=== PATIENT | male | born 1980 | race Caucasian/White ===

== ENCOUNTER 2017-08-18 08:38 | Inpatient (IN) | payer SELFPAY ==
[~2017-08-18] VITALS: Ht 190.5 cm; Wt 85.7 kg
[2017-08-18] MEDS ORDERED: DIAZEPAM 5MG TAB PO STA (08:56)
--- NOTE | 2017-08-18 09:35 | DIAGNOSTIC IMAGING REPORT ---
CT HEAD WITHOUT CONTRAST (CT) CLINICAL HISTORY: Seizure COMPARISON STUDY: No previous studies for comparison. TECHNIQUE: Axial CT of the brain is performed from the vertex to the skull base. IV contrast was not administered for this examination. A dose lowering technique was utilized adhering to the principles of ALARA. CT DOSE: 679.75 mGycm FINDINGS: No intra or extra-axial mass lesions are visualized. There is no CT evidence of acute cortical infarction. There is no evidence of midline shift. There is no acute hemorrhage. No calvarial fractures are visualized. There is no evidence of pathologic ventricular dilatation. There is no evidence of acute sinusitis IMPRESSION: Normal noncontrast head CT. Electronically signed by: Wyatt Walton M.D. 08/18/2017 9:34 AM Dictated Date/Time: 08/18/2017 9:31 AM
[2017-08-18 10:27] LABS: INR 1.1 (0.9-1.1); PROTHROMBIN TIME (PATIENT) 11.4 SECONDS (9.0-12.0)
[2017-08-18 10:35] LABS: BUN/CREATININE RATIO 9.4 (10-20); CALCIUM 9.9 mg/dl (8.5-10.1); CREATININE 1.01 mg/dl (0.60-1.40); MAGNESIUM 1.4 mg/dl (1.8-2.4); POTASSIUM 2.9 mmol/L (3.5-5.1)
[2017-08-18 10:46] LABS: CKMB/CK RATIO 0.5 (0-3.0); THYROID STIMULATING HORMONE 1.81 uIu/ml (0.300-4.500)
[2017-08-18 11:14] LABS: LYME DISEASE AB IGG NEG (NEG); LYME DISEASE AB IGM NEG (NEG)
[2017-08-18 11:17] LABS: HEMATOCRIT 40.5 % (42-52); MEAN CELL VOLUME 95.7 fL (80-100); MEAN CORPUSCULAR HEMOGLOBIN 35.7 pg (25-34); MEAN CORPUSCULAR HGB CONC 37.3 g/dl (32-36); PLATELET COUNT 79 K/uL (130-400); RED BLOOD COUNT 4.23 M/uL (4.7-6.1); WHITE BLOOD COUNT 6.57 K/uL (4.8-10.8)
[2017-08-18 11:18] LABS: BASO % 0.3 %; BASO ABS # 0.02 K/uL (0-0.2); COMPLETE YES; EOS % 0.2 %; IG% 0.6 %; LYMPH % 7.5 %; LYMPH ABS # 0.49 K/uL (1.2-3.4); MONO % 7.2 %; NEUT % 84.2 %; PLT ESTIMATE DECREASED; TOXIC GRANULATION 1+
[2017-08-18] MEDS ORDERED: LORAZEPAM 2 MG/ML 1 ML VIAL IV STA (11:31)
[2017-08-18] MEDS ORDERED: POTASSIUM CHLORIDE 20 MEQ TABCR PO STA (12:00)
[2017-08-18] MEDS ORDERED: ONDANSETRON INJ 2 MG/ML 2 ML VIAL IV PRN (13:30)
[2017-08-18] MEDS ORDERED: ACETAMINOPHEN 325 MG TAB PO PRN (13:30)
[2017-08-18] MEDS ORDERED: MAGNESIUM HYDROXIDE SUSP 30 ML UDC PO PRN (13:30)
--- NOTE | 2017-08-18 13:46 | History and Physical ---
History & Physical Date & Time of Service: Aug 18, 2017 at 13:27 Chief Complaint: Seizure Last Night Primary Care Physician: Rafat Spaulding M.D. History of Present Illness Source: patient, family 37 y/o M who was brought to the hospital today by his significant other over concern regarding seizures. Pt states he started drinking at age 18 in general , but he did not begin "heavy" drinking until the last 2 years or so. He was drinking around a fifth of vodka per day. He recently decided that he wanted to quit drinking and was undergoing a self taper with the help of his significant other. About 2 weeks ago while they were at their home in [place] , pt fell forward and was seen in the ED with neg CT/MRI. He was down to about 1/2 glass of vodka a day at that point. His last drink was on Thursday afternoon. He had about a glass of vodka. He then ran out of vodka and decided that he did not want to purchase more in an effort to fully stop drinking. He had been doing well with this until last night when he had 2 seizures as described by his significant other. The first was in the early afternoon, the second was the late evening. Pt has no memory of this. SO states that there was blood on the bedsheets and that pt bit his tongue. He was groggy between and after these events. At present, he feels shaky but better. He has been having decreased PO intake due to n/v. He has also been having diarrhea. Pt denies fever, SOB, chest pain , abd pain, LE pain or swelling. Pt has been having numbness/tingling to b/l UE and LE. This used to be to his knees, but is now just from ankles down. It only affects his UE in his hands. He states he feels unsteady on his feet. His SO has been undergoing a work-up for this. She does not currently use alcohol, but has in the past. She started a neuro work-up and is here to be seen for more advanced neuro testing. Apparently the water in their area of [place] "makes [place], [place] look like nothing". The water is brown regarded to be the worst in the country. She has undergone heavy metal testing that was neg. It was also "ruled out" that this was related to her hx of alcohol use. Pt is interested in rehab when he is able. Past Medical/Surgical History Denies known medical hx, but has not seen a PCP for many years Social History Smoking Status: Current Every Day Smoker Alcohol Use: as above, last drink was afternoon of 08/16 Drug Use: none Multi-Drug Resistant Organisms History of MDRO: No Allergies Coded Allergies: No Known Allergies (Unverified , 08/18/17) Home Medications No Active Prescriptions or Reported Meds Review of Systems Pertinent positives and negatives reviewed in HPI--all others negative Physical Exam Vital Signs Date Time Temp Pulse Resp B/P (MAP) Pulse Ox O2 Delivery O2 Flow Rate FiO2 08/18/17 12:30 111 18 128/82 97 Room Air 08/18/17 11:05 97 20 128/82 97 Room Air 08/18/17 10:21 118 18 128/82 100 Room Air 08/18/17 08:51 112 08/18/17 08:40 37.1 127 18 126/95 96 Room Air General Appearance: WD/WN, no apparent distress Head: normocephalic, atraumatic Eyes: EOMI, + pertinent finding (red rimmed) ENT: hearing grossly normal Neck: supple Respiratory/Chest: normal breath sounds, no respiratory distress Cardiovascular: regular rate, rhythm, no edema Abdomen/GI: non tender, soft Extremities/Musculoskelatal: no calf tenderness, no pedal edema Neurologic/Psych: alert, normal mood/affect, oriented x 3 Skin: normal color, warm/dry Diagnostics Laboratory Results Results Past 24 Hours Test 08/18/17 09:56 08/18/17 13:22 Range/Units White Blood Count 6.57 4.8-10.8 K/uL Red Blood Count 4.23 4.7-6.1 M/uL Hemoglobin 15.1 14.0-18.0 g/dL Hematocrit 40.5 42-52 % Mean Corpuscular Volume 95.7 80-100 fL Mean Corpuscular Hemoglobin 35.7 25-34 pg Mean Corpuscular Hemoglobin Concent 37.3 32-36 g/dl Platelet Count 79 130-400 K/uL Neutrophils (%) (Auto) 84.2 % Lymphocytes (%) (Auto) 7.5 % Monocytes (%) (Auto) 7.2 % Eosinophils (%) (Auto) 0.2 % Basophils (%) (Auto) 0.3 % Neutrophils # (Auto) 5.54 1.4-6.5 K/uL Lymphocytes # (Auto) 0.49 1.2-3.4 K/uL Monocytes # (Auto) 0.47 0.11-0.59 K/uL Eosinophils # (Auto) 0.01 0-0.5 K/uL Basophils # (Auto) 0.02 0-0.2 K/uL Immature Granulocyte % (Auto) 0.6 % Immature Granulocyte # (Auto) 0.04 0.00-0.02 K/uL Toxic Granulation 1+ Platelet Estimate DECREASED Prothrombin Time 11.4 9.0-12.0 SECONDS Prothromb Time International Ratio 1.1 0.9-1.1 Activated Partial Thromboplast Time 26.1 21.0-31.0 SECONDS Partial Thromboplastin Ratio 1.0 Sodium Level 131 136-145 mmol/L Potassium Level 2.9 3.5-5.1 mmol/L Chloride Level 91 98-107 mmol/L Carbon Dioxide Level 28 21-32 mmol/L Anion Gap 12.0 3-11 mmol/L Blood Urea Nitrogen 10 7-18 mg/dl Creatinine 1.01 0.60-1.40 mg/dl Est Creatinine Clear Calc Drug Dose 119.7 ml/min Estimated GFR () 109.6 Estimated GFR (Non- 94.6 BUN/Creatinine Ratio 9.4 10-20 Random Glucose 104 70-99 mg/dl Calcium Level 9.9 8.5-10.1 mg/dl Magnesium Level 1.4 1.8-2.4 mg/dl Total Bilirubin 2.5 0.2-1 mg/dl Direct Bilirubin 0.6 0-0.2 mg/dl Aspartate Amino Transf (AST/SGOT) 89 15-37 U/L Alanine Aminotransferase (ALT/SGPT) 112 12-78 U/L Alkaline Phosphatase 108 45-117 U/L Total Creatine Kinase 278 39-308 U/L Creatine Kinase MB 1.4 0.5-3.6 ng/ml Creatine Kinase MB Ratio 0.5 0-3.0 Total Protein 8.3 6.4-8.2 gm/dl Albumin 4.4 3.4-5.0 gm/dl Thyroid Stimulating Hormone (TSH) 1.810 0.300-4.500 uIu/ml Ethyl Alcohol mg/dL < 3.0 0-3 mg/dl Lyme Disease IgG Antibody NEG NEG Lyme Disease IgM Antibody NEG NEG Diagnostic Radiology CT head neg for acute Impression Assessment and Plan 37 y/o M who was admitted on 08/18 with alcohol withdrawal seizures Alcohol withdrawal seizure: last EtOH was afternoon of 08/16 and therefore still within the window for further withdrawals No hx of prior seizures and last activity was last night Started on librium 50mg TID with ativan PRN, should be tapered as able off of librium CT head neg for acute TSH WNL Lyme neg B12, folate pending with MCV borderline high normal Banana bag Pt is very motivated and has been self tapering for quite some time. Interested in rehab EtOH level in ED was neg HypoNa, hypoK: likely related to n/v/d and decreased PO Given K in the ED, monitor Recheck later tonight UE/LE n/t: improving on less EtOH, however SO with similar sx and undergoing neuro workup with what is described as non-optimal water source availability TSH, Lyme neg B12, folate pending Lipid panel pending Nicotine use: patch PRN CM: Pt lives in [place], but he and SO will be in the area for some time and he wishes to establish a PCP here during that time. He is also interested in rehab. Level of Care Telemetry VTE Prophylaxis VTE Risk Assessment Done? Y/N: Yes Risk Level: Low
--- NOTE | 2017-08-18 14:07 | EMERGENCY ROOM VISIT NOTE ---
History First contact with patient: 08:46 Chief Complaint: SEIZURE Stated Complaint: SEIZURE LAST NIGHT Nursing Triage Summary: pt reports attempting to stop drink has been having seizures and not sleeping and not eating, vomiting. had 2 seizure yesterday per friend. bit both side of tongue yesterday History of Present Illness The patient is a 37 year old male who presents to the Emergency Room via private vehicle with complaints of "seizure last night". The patient states that he had 2 seizures yesterday. He states he has tried stopping his alcohol consumption. He states that about 2 weeks ago, he fell and struck his head and had an episode that he believes was a seizure. He states he has been trying to wean off of one fifth of alcohol a day, and over the past few days has not consumed any. He states that when he fell 2 weeks ago he was seen at [place], and had a CT of the head and MRI which were normal. He states that yesterday around 2 or 3 PM he had a seizure with minimal memory of this, notes that he was clenched up. He also had a second one 11 PM. His heart rate has been fast , and he states that he has not had a drop of alcohol since Thursday. He also notes that occasionally his legs will feel weak times past 2 years. He has no family doctor and is from [place]. Review of Systems A complete 10-point Review of Systems was discussed with the patient, with pertinent positives and negatives listed in the History of Present Illness. All remaining Review of Systems questions can be considered negative unless otherwise specified. Past Medical/Surgical History Medical Problems: (1) Seizure Social History Smoking Status: Current Every Day Smoker Drug Use: none Current/Historical Medications No Active Prescriptions or Reported Meds Physical Exam Vital Signs Date Time Temp Pulse Resp B/P (MAP) Pulse Ox O2 Delivery O2 Flow Rate FiO2 08/18/17 12:30 111 18 128/82 97 Room Air 08/18/17 11:05 97 20 128/82 97 Room Air 08/18/17 10:21 118 18 128/82 100 Room Air 08/18/17 08:51 112 08/18/17 08:40 37.1 127 18 126/95 96 Room Air Physical Exam VITAL SIGNS - Vital signs and nursing notes were reviewed. Tachycardic. GENERAL - 37-year-old male appearing his stated age who is in no acute distress. Communicates well with provider and answers questions appropriately. SKIN - Without rashes. HEAD - NC/AT. EYES - Sclera anicteric. EARS - No deformities of external structures noted on gross examination bilaterally. No pain elicited with palpation of the tragus bilaterally. External auditory canals without discharge or otorrhea. Tympanic membranes pearly esteves without retraction or bulging. No fluid or purulent material visualized behind the TM. Handle of malleus, umbo, cone of light, pars tensa/ flaccid all easily visualized. NOSE - Midline and without cyanosis. No epistaxis or purulent drainage noted. Septum midline without deviation or septal hematoma noted. MOUTH/OROPHARYNX - Without perioral cyanosis. Buccal mucosa pink and moist and without leukoplakia. Tongue midline with equal elevation of palate bilaterally. No tonsillar hypertrophy, erythema, or exudates noted. Fair dentition noted. LUNGS - Chest wall symmetric without accessory muscle use, intercostals retractions, or central cyanosis. Normal vesicular breath sounds CTA B/L. No wheezes, rales, or rhonchi appreciated. CARDIAC - RRR with S1/S2. No murmur, rubs, or gallops appreciated. EXTREMITIES - No clubbing or peripheral cyanosis. No pretibial edema present. Minor tremor. +5/5 strength noted in UE/LE bilaterally. NEUROLOGIC - Cranial nerves II through XII grossly intact. Sensory intact to light touch throughout. PSYCH - A&O and cooperates fully with examiner. Pt is very pleasant and interacts well with examiner. Medical Decision & Procedures ER Provider Diagnostic Interpretation: CT HEAD WITHOUT CONTRAST (CT) CLINICAL HISTORY: Seizure COMPARISON STUDY: No previous studies for comparison. TECHNIQUE: Axial CT of the brain is performed from the vertex to the skull base. IV contrast was not administered for this examination. A dose lowering technique was utilized adhering to the principles of ALARA. CT DOSE: 679.75 mGycm FINDINGS: No intra or extra-axial mass lesions are visualized. There is no CT evidence of acute cortical infarction. There is no evidence of midline shift. There is no acute hemorrhage. No calvarial fractures are visualized. There is no evidence of pathologic ventricular dilatation. There is no evidence of acute sinusitis IMPRESSION: Normal noncontrast head CT. Electronically signed by: Wyatt Walton M.D. 08/18/2017 9:34 AM Dictated Date/Time: 08/18/2017 9:31 AM Laboratory Results 08/18/17 09:56 Red Blood Count 4.23, Mean Corpuscular Volume 95.7, Mean Corpuscular Hemoglobin 35.7, Mean Corpuscular Hemoglobin Concent 37.3, Neutrophils (%) (Auto) 84.2, Lymphocytes (%) (Auto) 7.5, Monocytes (%) (Auto) 7.2, Eosinophils (%) (Auto) 0.2 , Basophils (%) (Auto) 0.3, Neutrophils # (Auto) 5.54, Lymphocytes # (Auto) 0.49 , Monocytes # (Auto) 0.47, Eosinophils # (Auto) 0.01, Basophils # (Auto) 0.02 08/18/17 09:56 Test 08/18/17 09:56 08/18/17 13:22 White Blood Count 6.57 K/uL (4.8-10.8) Red Blood Count 4.23 M/uL (4.7-6.1) Hemoglobin 15.1 g/dL (14.0-18.0) Hematocrit 40.5 % (42-52) Mean Corpuscular Volume 95.7 fL (80-100) Mean Corpuscular Hemoglobin 35.7 pg (25-34) Mean Corpuscular Hemoglobin Concent 37.3 g/dl (32-36) Platelet Count 79 K/uL (130-400) Neutrophils (%) (Auto) 84.2 % Lymphocytes (%) (Auto) 7.5 % Monocytes (%) (Auto) 7.2 % Eosinophils (%) (Auto) 0.2 % Basophils (%) (Auto) 0.3 % Neutrophils # (Auto) 5.54 K/uL (1.4-6.5) Lymphocytes # (Auto) 0.49 K/uL (1.2-3.4) Monocytes # (Auto) 0.47 K/uL (0.11-0.59) Eosinophils # (Auto) 0.01 K/uL (0-0.5) Basophils # (Auto) 0.02 K/uL (0-0.2) Immature Granulocyte % (Auto) 0.6 % Immature Granulocyte # (Auto) 0.04 K/uL (0.00-0.02) Toxic Granulation 1+ Platelet Estimate DECREASED Prothrombin Time 11.4 SECONDS (9.0-12.0) Prothromb Time International Ratio 1.1 (0.9-1.1) Activated Partial Thromboplast Time 26.1 SECONDS (21.0-31.0) Partial Thromboplastin Ratio 1.0 Anion Gap 12.0 mmol/L (3-11) Est Creatinine Clear Calc Drug Dose 119.7 ml/min Estimated GFR () 109.6 Estimated GFR (Non- 94.6 BUN/Creatinine Ratio 9.4 (10-20) Calcium Level 9.9 mg/dl (8.5-10.1) Magnesium Level 1.4 mg/dl (1.8-2.4) Total Bilirubin 2.5 mg/dl (0.2-1) Direct Bilirubin 0.6 mg/dl (0-0.2) Aspartate Amino Transf (AST/SGOT) 89 U/L (15-37) Alanine Aminotransferase (ALT/SGPT) 112 U/L (12-78) Alkaline Phosphatase 108 U/L (45-117) Total Creatine Kinase 278 U/L (39-308) Creatine Kinase MB 1.4 ng/ml (0.5-3.6) Creatine Kinase MB Ratio 0.5 (0-3.0) Total Protein 8.3 gm/dl (6.4-8.2) Albumin 4.4 gm/dl (3.4-5.0) Thyroid Stimulating Hormone (TSH) 1.810 uIu/ml (0.300-4.500) Ethyl Alcohol mg/dL < 3.0 mg/dl (0-3) Lyme Disease IgG Antibody NEG (NEG) Lyme Disease IgM Antibody NEG (NEG) Medications Administered Medications (Trade) Dose Ordered Sig/James Route Start Time Stop Time Status Last Admin Dose Admin Diazepam (Valium Tab) 5 mg NOW STAT PO 08/18/17 08:56 08/18/17 09:04 DC 08/18/17 09:07 5 MG Lorazepam (Ativan Inj) 1 mg NOW STAT IV 08/18/17 11:31 08/18/17 11:33 DC 08/18/17 11:42 1 MG Potassium Chloride (Klor-Con Tab) 40 meq NOW STAT PO 08/18/17 12:00 08/18/17 12:02 DC 08/18/17 12:33 40 MEQ Medical Decision Patient was seen and evaluated as above. He presents to us today with a seizure last night. This was 2. He is trying to quit drinking alcohol. He tried to wean himself off, and has not had any over the past few days. This is a change from one fifth of vodka per day. He has had tremor, tachycardia, and 2 seizures. I believe he is experiencing delirium tremens/alcohol withdrawal. CBC reveals no concern of leukocytosis. Anemia noted. Platelet count decreased. Coags normal. Sodium 131, potassium 2.9. Bilirubin high at 2.5. AST and ALT both elevated. Negative alcohol. Lyme disease negative. CT head negative. He was given Valium and Ativan here. Tachycardia persisted. He has had no more seizures. I do believe that inpatient management is warranted. Case was discussed with the attending physician. Please refer to further documentation regarding his stay. In the evaluation and treatment of this patient, the following differential diagnoses were considered: Concussion, Contrecoup Injury, Brain Tumor, Depression, Encephalitis, Hypothyroidism, Meningitis, alcohol withdrawl, CVA, TIA, Migraine, Cluster Headache, Intracranial Abnormality, Intracranial Hemorrhage, Subdural Hematoma, Subarachnoid Hemorrhage, Hydrocephalus. Impression Primary Impression: Seizure Additional Impression: Hypokalemia Departure Information Dispostion Admitted as an inpatient Condition FAIR Prescriptions No Active Prescriptions or Reported Meds Referrals Rafat Spaulding M.D. (PCP) Patient Instructions My [facility] Problem Qualifiers
[2017-08-18 14:42] VITALS: BP 115/82; PULSE 133; TEMP 38.3; O2SAT 97; Ht 190.5 cm; Wt 85.7 kg
[2017-08-18] MEDS ORDERED: LORAZEPAM INJ 1 MG in SYRINGE 0.5 ML IV PRN (15:00)
[2017-08-18] MEDS: CHLORDIAZEPOXIDE 25 MG CAP PO SCH ×2 (15:27→20:04)
[2017-08-18] MEDS: LORAZEPAM 2 MG/ML 1 ML VIAL IV PRN ×3 (15:28→23:47)
[2017-08-18 16:00] VITALS: O2SAT 97
[2017-08-18 18:51] VITALS: BP 105/75; PULSE 114; TEMP 37.1; O2SAT 97
[2017-08-18 19:16] LABS: BUN/CREATININE RATIO 8.5 (10-20); CREATININE 1.23 mg/dl (0.60-1.40)
[2017-08-18 19:17] LABS: CALCIUM 10.1 mg/dl (8.5-10.1); POTASSIUM 2.8 mmol/L (3.5-5.1)
[2017-08-18 20:00] VITALS: O2SAT 97
[2017-08-18] MEDS: POTASSIUM CHLR 10 MEQ / WTR 10 MEQ in PREMIXED WATER 100 ML IV SCH ×2 (21:07→22:16)
[2017-08-18] MEDS ORDERED: NICOTINE 21 MG/24 HR TDSY TD PRN (22:45)
[2017-08-18 23:45] VITALS: BP 115/83; PULSE 130; TEMP 36.8; O2SAT 97
[2017-08-19 00:05] VITALS: O2SAT 97
[2017-08-19 00:45] LABS: BENZODIAZEPINE, URINE POS (NEG); COCAINE,URINE NEG (NEG); PHENCYCLIDINE, URINE NEG (NEG)
[2017-08-19 03:20] VITALS: BP 113/82; PULSE 102; TEMP 37; O2SAT 98
[2017-08-19 04:05] VITALS: O2SAT 98
[2017-08-19 06:57] LABS: BLOOD UREA NITROGEN 12 mg/dl (7-18); BUN/CREATININE RATIO 12.5 (10-20); CALCIUM 9.4 mg/dl (8.5-10.1); CARBON DIOXIDE 27 mmol/L (21-32); CHLORIDE 96 mmol/L (98-107); CREATININE 0.96 mg/dl (0.60-1.40); GLUCOSE 85 mg/dl (70-99); SODIUM 134 mmol/L (136-145)
[2017-08-19 07:27] VITALS: BP 115/79; PULSE 106; TEMP 37; O2SAT 98
[2017-08-19] MEDS: CHLORDIAZEPOXIDE 25 MG CAP PO SCH ×2 (07:53→13:49)
[2017-08-19 08:00] VITALS: O2SAT 98
[2017-08-19] MEDS ORDERED: MULTI-VITAMIN INFUSION INJ 10 ML, THIAMINE HCL INJ 100 MG, FoLIC ACID INJ 1 MG in SODIU... IV SCH (09:00)
[2017-08-19 12:00] VITALS: BP 120/83; PULSE 111; TEMP 37.8; O2SAT 98; O2SAT 99
[2017-08-19] MEDS ORDERED: LBR25 PO (16:04)
[2017-08-21 14:12] LABS: HYDROXYETHYLFLURAZEPAM CONF NEGATIVE NG/ML (CUTOFF=50); HYDROXYMIDAZOLAM NEGATIVE NG/ML (CUTOFF=50); HYDROXYTRIAZOLAM CONF NEGATIVE NG/ML (CUTOFF=50); TEMAZEPAM CONF 481 NG/ML (CUTOFF=50)
== END 2017-08-19 16:10 | disposition left against medical advice (07) | DRG 894 ==
LOC: C.EDB 08:40 → C.2T 13:26 → ENRESERV 13:44
PROVIDERS: ADMIT Family Medicine; ATTEND Family Medicine
DX: F10.239 Alcohol dependence with withdrawal, unspecified (principal); G40.89 Other seizures; E87.1 Hypo-osmolality and hyponatremia; E87.6 Hypokalemia; R20.0 Anesthesia of skin; R20.2 Paresthesia of skin; F17.200 Nicotine dependence, unspecified, uncomplicated